=== PATIENT | male | born 1965 | race Caucasian/White ===

== ENCOUNTER 2022-12-08 12:28 | Outpatient (CLI) | payer MEDICAID, SELFPAY ==
--- NOTE | 2022-12-08 | DI.RAD_ITS ---
Exam(s) XR KNEE LT 3V AP,LAT,TOAN EXAM: XR KNEE LT 3V AP,LAT,TOAN CLINICAL HISTORY: LT KNEE PAIN-M25.562. TECHNIQUE: 2D digital imaging was performed. Three views. COMPARISON: No exams were available for comparison FINDINGS: BONES: No acute fracture is present. No bony destructive lesion is seen. JOINTS: The knee is normally aligned. No joint effusion is seen. SOFT TISSUE: Normal. IMPRESSION: Normal radiographs of the left knee. DATA REPOSITORY: RADIATION DOSE DELIVERED:
--- NOTE | 2022-12-08 12:15 | DI.RAD_ITS ---
Exam(s) XR CERVICAL SPINE COMP 4-5V EXAM: XR CERVICAL SPINE COMP 4-5V CLINICAL HISTORY: CERVICAL PAIN-M54.2. TECHNIQUE: 2D digital imaging was performed. COMPARISON: No exams were available for comparison FINDINGS: BONES: No fracture or destructive lesion. Vertebral bodies are unremarkable. DISKS: Mild narrowing of the C 5 6 disc space and small endplate osteophytes. Mild left neural casandra inal narrowing. Small osteophytes mildly encroach into the right neural foramen at C3-4. Interverte bral disc spaces are maintained. ALIGNMENT: Cervical spinal alignment is within normal limits. The odontoid and atlantoaxial articulat ions are normal. SOFT TISSUE: Normal. The lung apices are clear. IMPRESSION: Degenerative changes with mild neural foraminal narrowing at C5-6 and C3-4. DATA REPOSITORY: RADIATION DOSE DELIVERED:
== END 2022-12-08 12:48 ==
LOC: DI 12:29
PROVIDERS: PCP Family Medicine; Visit Provider Nurse Practitioner Primary Care
DX: M47.812 Spondylosis without myelopathy or radiculopathy, cervical region (principal); M48.02 Spinal stenosis, cervical region
CPT/HCPCS: 73562; 72050

== ENCOUNTER 2024-03-16 14:01 | Outpatient (CLI) | payer BC, SELFPAY ==
--- NOTE | 2024-03-16 06:00 | DI.RAD_ITS ---
Exam(s) XR PAIN CLINIC CERVICAL SP 2V EXAM: XR PAIN CLINIC CERVICAL SP 2V CLINICAL HISTORY: DX: Cervical spondylosis TECHNIQUE: 2D and realtime digital imaging was performed. CONTRAST MATERIAL: Refer to procedure report. COMPARISON: No exams were available for comparison FINDINGS: Fluoroscopy was provided for Dr. Ely during the performance of a cervical medial branch block. Ple ase refer to the procedure report for complete details. Ka,r=3.55 mGy IMPRESSION: RADIATION DOSE DELIVERED: 0.0 0.0 0
[2024-03-16 14:17] VITALS: BP 126/70; PULSE 62; RESP 20; TEMP 36.6; O2SAT 96
--- NOTE | 2024-03-16 15:03 | PDOC.PAIN ---
Date of service: 03/16/24 Time of Service: 15:03 Pain Managment Procedure Note Procedure Note Procedure Note: PROCEDURE NOTE RIGHT SIDED CERVICAL MEDIAL BRANCH BLOCKS Date of Service: March 16, 2024 Patient: Mario Moulton Provider: Jarret Ely DO, MPH Mario Moulton has been [facility] for cervical medial branch blocks. Pre-operative diagnosis: Cervical Spondylosis without Myelopathy Post-operative diagnosis: Same Pre-procedure pain: VAS= 7/10 COMMENTS: I previously evaluated him in the clinic and his symptoms are the same. Mario? was interviewed and the medical records were reviewed. There were no medical, pharmacologic, radiographic or other structural contraindications to attempting fluoroscopically guided local anesthetic cervical medial branch blocks. Risks and potential side effects were discussed. I also discussed the potential benefit(s) of the procedure with Mario, and voiced concerns were addressed. After Mario was completely informed about the procedure, the printed consent form was signed. A standard time-out procedure was performed. Mario was placed in the lateral decubitus position on the fluoroscopy table with the effected side up. Automated blood pressure cuff and pulse oximeter were applied. The skin entry points for approaching the anatomic target points of the segmental medial branches of Right C2,C3,C4,and C5 were identified with fluoroscopy and marked. The skin at the target site area was thoroughly prepared with Chlorhexadine. The skin was then draped. Next, a 25 gauge 3.5 spinal needle was placed under fluoroscopic guidance down on to the target point (the articular pillar) for each respective segmental medial branch. Position was confirmed in A/P and lateral views. Aspiration revealed no blood or clear fluid. Next, 0.25ml of omnipaque 240 was injected at each level. No contrast following a vascular or neural pattern was visualized under continuous fluoroscopy. Next, 0.25 ml of preservative-free 0.5% bupivicaine was injected at each level. (49 mls of Omnipaque was wasted) There was no unusual discomfort expressed by Mario. The needles were withdrawn without difficulty. Mario was observed and was without hemodynamic, neurologic, or allergic reactions.? Fluoroscopic images were digitally archived. Mario's vital signs were stable throughout the procedure and were as recorded in the doc flowsheet by the nursing staff. Provacative testing using the Modified Bansal's facet loading test- Right side Directly before the block VAS (0-10) = 7/10 5 minutes after the block VAS (0-10) = 2/10 Percentage relief obtained with this diagnostic block 80% Any improved physical functioning directly after the blocks? Able to move his neck with ease Follow up plans and appointments were discussed with Mario. Mario was instructed to keep careful note of how the usual pain was modified by these injections. Specifically, to keep a pain diary for the next 4 hours using a numeric pain scale of 0-10 and report these results. Post procedure instruction was given as documented in the nursing documentation and having met discharge criteria, the patient was [facility]. Based on the medial branches blocked today, if Mario has adequate relief and we are able to proceed to radiofrequency ablation, the treatment should result in the denervation of the Right C2-C3, C3-C4 and C4-C5 facet joints. We would expect to denervate a total of 3 facets during the radiofrequency ablation. COMMENTS: No apparent complications. Post-procedure pain: VAS= 2/10. Mario will call back with 0-4 hour post-procedure pain scores. I personally performed the entire procedure. JARRET ELY DO, MPH ABPM&R-subspecialty board certification in Pain Medicine [facility] [facility]
[2024-03-16 15:15] VITALS: BP 125/67; PULSE 78; RESP 17; O2SAT 99
[2024-03-16] MEDS: Bupivacaine 0.5% Pres-Free 10 ML VIAL IJ (15:18)
[2024-03-16] MEDS: Nerve Block Tray 1 EACH MC (15:18)
[2024-03-16] MEDS: Omnipaque 240 MG/ML 50 ML BTL IJ (15:19)
== END 2024-03-16 14:02 | disposition home or self-care (01) ==
LOC: PC 14:01
PROVIDERS: PCP Nurse Practitioner Primary Care; Visit Provider Preventive Medicine Occupational Medicine
DX: M47.812 Spondylosis without myelopathy or radiculopathy, cervical region (principal)
CPT/HCPCS: 64490; 64491; 64492; 72040; J0665; Q9967

== ENCOUNTER 2024-05-05 09:56 | Outpatient (CLI) | payer BC, SELFPAY ==
[2024-05-05 10:11] VITALS: BP 119/64; PULSE 67; RESP 20; TEMP 36.6; O2SAT 97
--- NOTE | 2024-05-05 10:54 | PDOC.PAIN ---
Date of service: 05/05/24 Time of Service: 10:54 Pain Managment Procedure Note Procedure Note Procedure Note: PROCEDURE NOTE LEFT SIDED CERVICAL MEDIAL BRANCH BLOCKS Date of Service: May 05, 2024 Patient: Mario Moulton Provider: Jarret Ely DO, MPH Mario Moulton has been referred to the [facility] for cervical medial branch blocks. Pre-operative diagnosis: Cervical Spondylosis without Myelopathy Post-operative diagnosis: Same Pre-procedure pain: VAS= 9/10 COMMENTS: I previously evaluated him in the office. His symptoms are unchanged. Mario?was interviewed and the medical records were reviewed. There were no medical, pharmacologic, radiographic or other structural contraindications to attempting fluoroscopically guided local anesthetic cervical medial branch blocks. Risks and potential side effects were discussed. I also discussed the potential benefit(s) of the procedure with Mario, and voiced concerns were addressed. After Mario was completely informed about the procedure, the printed consent form was signed. A standard time-out procedure was performed. Mario was placed in the lateral decubitus position on the fluoroscopy table with the effected side up. Automated blood pressure cuff and pulse oximeter were applied. The skin entry points for approaching the anatomic target points of the segmental medial branches of Left C3,C4,C5 and C6 were identified with fluoroscopy and marked. The skin at the target site area was thoroughly prepared with Chlorhexadine. The skin was then draped. Next, a 25 gauge 3.5 spinal needle was placed under fluoroscopic guidance down on to the target point (the articular pillar) for each respective segmental medial branch. Position was confirmed in A/P and lateral views. Aspiration revealed no blood or clear fluid. Next, 0.25ml of omnipaque 240 was injected at each level. No contrast following a vascular or neural pattern was visualized under continuous fluoroscopy. Next, 0.25 ml of preservative-free 0.5% bupivicaine was injected at each level. (49 mls of Omnipaque was wasted) There was no unusual discomfort expressed by Mario. The needles were withdrawn without difficulty. Mario was observed and was without hemodynamic, neurologic, or allergic reactions.? Fluoroscopic images were digitally archived. Mario's vital signs were stable throughout the procedure and were as recorded in the docflowsheet by the nursing staff. Provacative testing using the Modified Bansal's facet loading test Left side Directly before the block VAS (0-10) = 9/10 Five minutes after the block VAS (0-10) = 0/10 Percentage relief obtained with this diagnostic block 100% Any improved physical functioning directly after the blocks? Able to move his neck in all directions without pain Follow up plans and appointments were discussed with Mario. Mario was instructed to keep careful note of how the usual pain was modified by these injections. Specifically, to keep a pain diary for the next 4 hours using a numeric pain scale of 0-10 and report these results. Post procedure instruction was given as documented in the nursing documentation and having met discharge criteria, the patient was [facility] from the [facility]. Based on the medial branches blocked today, if Mario has adequate relief and we are able to proceed to radiofrequency ablation, the treatment should result in the denervation of the Left C3-C4, C4-C5, and C5-C6 facet joints. We would expect to denervate a total of 3 facets during the radiofrequency ablation. COMMENTS: No apparent complications. Post-procedure pain: VAS= 0/10 Mario will call back with 0-4 hour post-procedure pain scores. I personally performed the entire procedure. JARRET ELY DO, MPH ABPM&R-subspecialty board certification in Pain Medicine [facility]
--- NOTE | 2024-05-05 10:57 | DI.RAD_ITS ---
Exam(s) XR PAIN CLINIC CERVICAL SP 2V EXAM: XR PAIN CLINIC CERVICAL SP 2V CLINICAL HISTORY: Dx: Cervical Spondylosis. TECHNIQUE: Fluoroscopy was provided for the referring physician for guidance with performing pain cl inic injection procedure. COMPARISON: No exams were available for comparison FINDINGS: Please see procedure note for details. Fluoro time: 43.7 seconds RADIATION DOSE DELIVERED: Scoobyr=2.56 mGy
[2024-05-05 11:02] VITALS: BP 104/38; PULSE 73; RESP 17; O2SAT 99
[2024-05-05] MEDS: Nerve Block Tray 1 EACH MC (11:03)
[2024-05-05] MEDS: Omnipaque 240 MG/ML 50 ML BTL IJ (11:04)
[2024-05-05] MEDS: Bupivacaine 0.5% Pres-Free 10 ML VIAL IJ (11:04)
== END 2024-05-05 09:57 | disposition home or self-care (01) ==
LOC: PC 09:58
PROVIDERS: PCP Nurse Practitioner Primary Care; Visit Provider Preventive Medicine Occupational Medicine
DX: M47.812 Spondylosis without myelopathy or radiculopathy, cervical region (principal)
CPT/HCPCS: 64490; 64491; 64492; 72040; J0665; Q9967

== ENCOUNTER 2024-06-22 10:31 | Outpatient (CLI) | payer BC, SELFPAY ==
--- NOTE | 2024-06-22 06:00 | DI.RAD_ITS ---
Exam(s) XR PAIN CLINIC CERVICAL SP 2V EXAM: XR PAIN CLINIC CERVICAL SP 2V CLINICAL HISTORY: DX: Cervical spondylosis TECHNIQUE: 2D and realtime digital imaging was performed. CONTRAST MATERIAL: Refer to procedure report. COMPARISON: No exams were available for comparison FINDINGS: Fluoroscopy was provided for Dr. Ely during the performance of a cervical medial branch block. Ple ase refer to the procedure report for complete details. Ka,r=6.8 mGy IMPRESSION: RADIATION DOSE DELIVERED: 0.0 0.0 0
[2024-06-22 10:52] VITALS: BP 125/59; PULSE 77; RESP 18; TEMP 36.8; O2SAT 97
[2024-06-22 11:13] VITALS: PULSE 84; RESP 18; O2SAT 97
[2024-06-22 11:20] VITALS: PULSE 88; RESP 14; O2SAT 98
[2024-06-22 11:26] VITALS: BP 124/38; PULSE 85
[2024-06-22] MEDS: Omnipaque 240 MG/ML 50 ML BTL IJ (11:35)
[2024-06-22] MEDS: Nerve Block Tray 1 EACH MC (11:35)
[2024-06-22] MEDS: Bupivacaine 0.5% Pres-Free 10 ML VIAL IJ (11:35)
--- NOTE | 2024-06-22 12:07 | PDOC.PAIN_ITS ---
Date of service: 06/22/24 Time of Service: 12:07 Pain Managment Procedure Note Procedure Note Procedure Note: PROCEDURE NOTE RIGHT SIDED CERVICAL MEDIAL BRANCH BLOCKS #2 Date of Service: June 22, 2024 Patient: Mario Moulton Provider: Jarret Ely DO, MPH Mario Moulton has been referred to the [facility] for cervical medial branch blocks. Pre-operative diagnosis: Cervical Spondylosis without Myelopathy Post-operative diagnosis: Same Pre-procedure pain: VAS= 6/10 COMMENTS: He did very well with the first CMBBs at these levels and the pain did return. Mario? was interviewed and the medical records were reviewed. There were no medical, pharmacologic, radiographic or other structural contraindications to attempting fluoroscopically guided local anesthetic cervical medial branch blocks. Risks and potential side effects were discussed. I also discussed the potential benefit(s) of the procedure with Mario, and voiced concerns were addressed. After Mario was completely informed about the procedure, the printed consent form was signed. A standard time-out procedure was performed. Mario was placed in the lateral decubitus position on the fluoroscopy table with the effected side up. Automated blood pressure cuff and pulse oximeter were applied. The skin entry points for approaching the anatomic target points of the segmental medial branches of Right C3,C4,C5 and C6 were identified with fluoroscopy and marked. The skin at the target site area was thoroughly prepared with Chlorhexadine. The skin was then draped. Next, a 25 gauge 3.5 spinal needle was placed under fluoroscopic guidance down on to the target point (the articular pillar) for each respective segmental medial branch. Position was confirmed in A/P and lateral views. Aspiration revealed no blood or clear fluid. Next, 0.25ml of omnipaque 240 was injected at each level. No contrast following a vascular or neural pattern was visualized under continuous fluoroscopy. Next, 0.25 ml of preservative-free 0.5% bupivicaine was injected at each level. (49 mls of Omnipaque was wasted) There was no unusual discomfort expressed by Mario. The needles were withdrawn without difficulty. Mario was observed and was without hemodynamic, neurologic, or allergic reactions.? Fluoroscopic images were digitally archived. Mario's vital signs were stable throughout the procedure and were as recorded in the doc flowsheet by the nursing staff. Provacative testing using the Modified Bansal's facet loading test- Right side Directly before the block VAS (0-10) = 6/10 5 minutes after the block VAS (0-10) = 1/10 Percentage relief obtained with this diagnostic block 90% Any improved physical functioning directly after the blocks? Able to move his neck in all directions. Follow up plans and appointments were discussed with Mario. Mario was instructed to keep careful note of how the usual pain was modified by these injections. Specifically, to keep a pain diary for the next 4 hours using a numeric pain scale of 0-10 and report these results. Post procedure instruction was given as documented in the nursing documentation and having met discharge criteria, the patient was [facility] from the [facility]. Based on the medial branches blocked today, if Mario has adequate relief and we are able to proceed to radiofrequency ablation, the treatment should result in the denervation of the Right C3-C4, C4-C5, and C5-C6 facet joints. We would expect to denervate a total of 3 facets during the radiofrequency ablation. COMMENTS: No apparent complications. Post-procedure pain: VAS= 1/10. Mario will call back with 0-4 hour post-procedure pain scores. I personally performed the entire procedure. JARRET ELY DO, MPH ABPM&R-subspecialty board certification in Pain Medicine [facility] [place]
== END 2024-06-22 10:32 | disposition home or self-care (01) ==
LOC: PC 10:32
PROVIDERS: PCP Nurse Practitioner Primary Care; Visit Provider Preventive Medicine Occupational Medicine
DX: M47.812 Spondylosis without myelopathy or radiculopathy, cervical region (principal)
CPT/HCPCS: 64490; 64491; 64492; 72040; J0665; Q9967